=== PATIENT | male | born 1975 | race Two or more races ===

== ENCOUNTER 2017-10-06 10:27 | Inpatient (IN) | payer OTHER ==
[2017-10-06 11:24] VITALS: BMI 31.4
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
[2017-10-06] MEDS ORDERED: MAGNESIUM HYDROX 2400MG/30ML ORAL SUSPENSION 30 ML CUP PO PRN (16:05)
[2017-10-06] MEDS ORDERED: LOPERAMIDE HCL 2 MG CAPSULE PO PRN (16:05)
[2017-10-06] MEDS ORDERED: MENTHOL/PHENOL 1 EACH UD MM PRN (16:05)
[2017-10-06] MEDS ORDERED: MAG HYDROX/AL HYDROX/SIMETH 30 ML UNIT-DOSE CUP PO PRN (16:05)
[2017-10-06] MEDS ORDERED: IBUPROFEN 400 MG TABLET (FP) PO PRN (16:05)
[2017-10-06] MEDS ORDERED: NICOTINE POLACRILEX 4 MG GUM BC PRN (16:05)
[2017-10-06] MEDS ORDERED: ACETAMINOPHEN 325 MG TABLET (FP) PO PRN (16:05)
[2017-10-06] MEDS ORDERED: guaiFENesin/D-METHORPHAN HB 10 ML UNIT-DOSE CUPS PO PRN (16:05)
[2017-10-06] MEDS ORDERED: MAGNESIUM CITRATE 300 ML BOTTLE PO PRN (16:05)
[2017-10-06] MEDS ORDERED: P-EPHED 60MG/TRIPROLIDI 2.5MG TABLET PO PRN (16:05)
[2017-10-06] MEDS ORDERED: METHADONE HCL 10 MG TABLET (FOR DETOX USE ONLY) PO ONE ×2 (17:00→23:00)
[2017-10-06] MEDS ORDERED: diazePAM 5 MG TABLET PO ONE (17:00)
[2017-10-06] MEDS: NICOTINE 21 MG/24 HOURS TOPICAL PATCH TD SCH (17:16)
[2017-10-06 20:16] LABS: URINE APPEARANCE CLEAR; URINE BILIRUBIN NEGATIVE (<2.0 mg/dL); URINE COLOR LTYELLOW; URINE GLUCOSE (UA) NEGATIVE (NEGATIVE); URINE KETONE NEGATIVE (NEGATIVE); URINE LEUK ESTERASE NEGATIVE (NEGATIVE); URINE NITRITE NEGATIVE (NEGATIVE); URINE PROTEIN NEGATIVE (NEGATIVE); URINE UROBILINOGEN NEGATIVE mg/dL (0.2-1.0)
[2017-10-06] MEDS ORDERED: MELATONIN 5 MG TABLETS PO PRN (22:00)
[2017-10-06] MEDS: THIAMINE HCL 100 MG TABLET (FP) PO SCH (22:34)
[2017-10-06] MEDS: diazePAM 5 MG TABLET PO SCH (22:34)
[2017-10-07] MEDS: diazePAM 5 MG TABLET PO SCH ×3 (06:49→23:10)
[2017-10-07] MEDS ORDERED: METHADONE HCL 10 MG TABLET (FOR DETOX USE ONLY) PO SCH (10:00)
[2017-10-07] MEDS: NICOTINE 21 MG/24 HOURS TOPICAL PATCH TD SCH (10:30)
[2017-10-07] MEDS: PRENATAL VITAMINS W/ FOLIC ACID TABLET (FP) PO SCH (10:30)
[2017-10-07] MEDS: diazePAM 5 MG TABLET PO PRN (10:30)
[2017-10-07 11:04] LABS: HEMATOCRIT 40.4 % (35.4-49); HEMOGLOBIN 13.5 GM/dL (11.7-16.9); MCH 30.6 pg (25.7-33.7); MCHC 33.4 g/dl (32.0-35.9); MEAN CELL VOLUME 91.7 fl (80-96); MEAN PLT VOLUME 9.8 fl (7.5-11.1); PLATELET COUNT 174 K/MM3 (134-434); RDW 12.5 % (11.9-15.9); WHITE BLOOD COUNT 6.3 K/mm3 (4.0-10.0)
--- NOTE | 2017-10-07 11:10 | PN ---
S CIWA - CIWA Score Nausea/Vomitin Muscle Tremors: 3 Anxiety: 3 Agitation: 3 Paroxysmal Sweats: 2 Orientation: 0-Oriented Tacttile Disturbances: 1-Very Mild Itch/Numbness Auditory Disturbances: 1-Very Mild Visual Disturbances: 0-None Headache: 2-Mild CIWA-Ar Total Score: 18 BHS COWS - Scale Resting Pulse: 0= [place] 80 or Below Sweatin= Chills/Flushing Restless Observation: 3= Extraneous Movement Pupil Size: 1= Pupils >than Normal Bone or Joint Aches: 2= Severe Diffuse Aches Runny Nose/ Eye Tearin= Runny Nose/Eyes GI Upset > 30mins: 2= Nausea/Diarrhea Tremor Observation of Outstretched Hands: 2= Slight Tremor Visible Yawning Observation: 1= 1-2x During Session Anxiety or Irritability: 2=Irritable/Anxious Goose Flesh Skin: 0=Smooth Skin COWS Score: 16 S Progress Note (SOAP) Subjective: alert,irritable,anxious,interrupted sleep,tremor,pain in the body and back Objective: 10/07/17 11:07 Vital Signs Temperature 97.0 F L 10/07/17 09:52 Pulse Rate 52 L 10/07/17 09:52 Respiratory Rate 18 10/07/17 09:52 Blood Pressure 100/53 10/07/17 09:52 O2 Sat by Pulse Oximetry (%) ekg sinus bradycardia,inverted t in 1,avl rate 44/min no chest pain,no sob,no dizziness Laboratory Last Values Urine Color Ltyellow 10/06/17 19:00 Urine Appearance Clear 10/06/17 19:00 Urine pH 5.0 (5.0-8.0) 10/06/17 19:00 Ur Specific [place] 1.019 (1.001-1.035) 10/06/17 19:00 Urine Protein Negative (NEGATIVE) 10/06/17 19:00 Urine Glucose (UA) Negative (NEGATIVE) 10/06/17 19:00 Urine Ketones Negative (NEGATIVE) 10/06/17 19:00 Urine Blood Negative (NEGATIVE) 10/06/17 19:00 Urine Nitrite Negative (NEGATIVE) 10/06/17 19:00 Urine Bilirubin Negative (<2.0 mg/dL) 10/06/17 19:00 Urine Urobilinogen Negative mg/dL (0.2-1.0) 10/06/17 19:00 Ur Leukocyte Esterase Negative (NEGATIVE) 10/06/17 19:00 labs pending Assessment: 10/07/17 11:09 withdrawal symptom Plan: continue detox
[2017-10-07] MEDS ORDERED: CYCLOBENZAPRINE HCL 10 MG TABLET (FP) PO PRN (11:11)
[2017-10-07 11:32] LABS: ALBUMIN 3.6 g/dl (3.4-5.0); ANION GAP 8 MMOL/L (8-16); BLOOD UREA NITROGEN 10 mg/dL (7-18); CALCIUM 8.9 mg/dL (8.5-10.1); CHLORIDE 107 mmol/L (98-107); CO2 29 mmol/L (21-32); GLUCOSE,RANDOM 87 mg/dL (74-106); POTASSIUM 4.1 mmol/L (3.5-5.1); SODIUM 144 mmol/L (136-145)
[2017-10-07 11:36] LABS: ALK PHOS 78 U/L (45-117); BILIRUBIN,TOTAL 0.3 mg/dL (0.2-1.0); CREATININE 0.8 mg/dL (0.7-1.3); SGOT/AST 23 U/L (15-37); SGPT/ALT 29 U/L (12-78); TOT PROT 6.8 g/dl (6.4-8.2)
[2017-10-07 11:55] LABS: SICKLE CELL SCREEN NEGATIVE (NEGATIVE)
--- NOTE | 2017-10-07 20:17 | EKG ---
Test Reason : Blood Pressure : / mmHG Vent. Rate : 044 BPM Atrial Rate : 044 BPM P-R Int : 150 ms QRS Dur : 086 ms QT Int : 444 ms P-R-T Axes : 000 125 138 degrees QTc Int : 379 ms MARKED SINUS BRADYCARDIA WITH SINUS ARRHYTHMIA LEFT POSTERIOR FASCICULAR BLOCK ST ELEVATION, CONSIDER EARLY REPOLARIZATION, PERICARDITIS, OR INJURY NONSPECIFIC ST ABNORMALITY ABNORMAL ECG NO PREVIOUS ECGS AVAILABLE Confirmed by JIMMY TRIPLETT, SAGRARIO ([id number]) on 10/07/2017 8:17:25 PM Referred By: Confirmed By:SAGRARIO MARQUEZ MD
[2017-10-07] MEDS: cloNIDine HCL 0.1 MG TABLET PO SCH (23:09)
[2017-10-07] MEDS: THIAMINE HCL 100 MG TABLET (FP) PO SCH (23:09)
[2017-10-08] MEDS: diazePAM 5 MG TABLET PO PRN (05:25)
--- NOTE | 2017-10-08 10:28 | PN ---
[facility] CIWA - CIWA Score Nausea/Vomitin Muscle Tremors: 3 Anxiety: 3 Agitation: 2 Paroxysmal Sweats: 1-Minimal Palms Moist Orientation: 0-Oriented Tacttile Disturbances: 1-Very Mild Itch/Numbness Auditory Disturbances: 1-Very Mild Visual Disturbances: 0-None Headache: 2-Mild CIWA-Ar Total Score: 16 BHS COWS - Scale Resting Pulse: 0= [place] 80 or Below Sweatin= Chills/Flushing Restless Observation: 3= Extraneous Movement Pupil Size: 1= Pupils >than Normal Bone or Joint Aches: 2= Severe Diffuse Aches Runny Nose/ Eye Tearin= Runny Nose/Eyes GI Upset > 30mins: 2= Nausea/Diarrhea Tremor Observation of Outstretched Hands: 2= Slight Tremor Visible Yawning Observation: 1= 1-2x During Session Anxiety or Irritability: 2=Irritable/Anxious Goose Flesh Skin: 0=Smooth Skin COWS Score: 16 [facility] Progress Note (SOAP) Subjective: alert,irritable,anxious,interrupted sleep,tremor,pain in the body and back Objective: 10/08/17 10:25 Vital Signs Temperature 98.4 F 10/08/17 09:26 Pulse Rate 51 L 10/08/17 09:26 Respiratory Rate 18 10/08/17 09:26 Blood Pressure 140/77 10/08/17 09:26 O2 Sat by Pulse Oximetry (%) Laboratory Last Values WBC 6.3 K/mm3 (4.0-10.0) 10/07/17 07:00 RBC 4.40 M/mm3 (4.00-5.60) 10/07/17 07:00 Hgb 13.5 GM/dL (11.7-16.9) 10/07/17 07:00 Hct 40.4 % (35.4-49) 10/07/17 07:00 MCV 91.7 fl (80-96) 10/07/17 07:00 MCH 30.6 pg (25.7-33.7) 10/07/17 07:00 MCHC 33.4 g/dl (32.0-35.9) 10/07/17 07:00 RDW 12.5 % (11.9-15.9) 10/07/17 07:00 Plt Count 174 K/MM3 (134-434) 10/07/17 07:00 MPV 9.8 fl (7.5-11.1) 10/07/17 07:00 Sickle Cell Screen Negative (NEGATIVE) 10/07/17 07:00 Sodium 144 mmol/L (136-145) 10/07/17 07:00 Potassium 4.1 mmol/L (3.5-5.1) 10/07/17 07:00 Chloride 107 mmol/L (98-107) 10/07/17 07:00 Carbon Dioxide 29 mmol/L (21-32) 10/07/17 07:00 Anion Gap 8 MMOL/L (8-16) 10/07/17 07:00 BUN 10 mg/dL (7-18) 10/07/17 07:00 Creatinine 0.8 mg/dL (0.7-1.3) 10/07/17 07:00 Creat Clearance w eGFR > 60 (>60) 10/07/17 07:00 Random Glucose 87 mg/dL (74-106) 10/07/17 07:00 Calcium 8.9 mg/dL (8.5-10.1) 10/07/17 07:00 Total Bilirubin 0.3 mg/dL (0.2-1.0) 10/07/17 07:00 AST 23 U/L (15-37) 10/07/17 07:00 ALT 29 U/L (12-78) 10/07/17 07:00 Alkaline Phosphatase 78 U/L (45-117) 10/07/17 07:00 Total Protein 6.8 g/dl (6.4-8.2) 10/07/17 07:00 Albumin 3.6 g/dl (3.4-5.0) 10/07/17 07:00 Urine Color Ltyellow 10/06/17 19:00 Urine Appearance Clear 10/06/17 19:00 Urine pH 5.0 (5.0-8.0) 10/06/17 19:00 Ur Specific [place] 1.019 (1.001-1.035) 10/06/17 19:00 Urine Protein Negative (NEGATIVE) 10/06/17 19:00 Urine Glucose (UA) Negative (NEGATIVE) 10/06/17 19:00 Urine Ketones Negative (NEGATIVE) 10/06/17 19:00 Urine Blood Negative (NEGATIVE) 10/06/17 19:00 Urine Nitrite Negative (NEGATIVE) 10/06/17 19:00 Urine Bilirubin Negative (<2.0 mg/dL) 10/06/17 19:00 Urine Urobilinogen Negative mg/dL (0.2-1.0) 10/06/17 19:00 Ur Leukocyte Esterase Negative (NEGATIVE) 10/06/17 19:00 RPR Titer Nonreactive (NONREACTIVE) 10/07/17 07:00 HIV 1&2 Antibody Screen Negative 10/06/17 07:00 HIV P24 Antigen Negative 10/06/17 07:00 Assessment: 10/08/17 10:27 withdrawal symptom Plan: continue detox
[2017-10-08] MEDS: PRENATAL VITAMINS W/ FOLIC ACID TABLET (FP) PO SCH (11:09)
[2017-10-08] MEDS: cloNIDine HCL 0.1 MG TABLET PO SCH ×2 (11:09→22:26)
[2017-10-08] MEDS: NICOTINE 21 MG/24 HOURS TOPICAL PATCH TD SCH (11:10)
[2017-10-08] MEDS: diazePAM 5 MG TABLET PO SCH ×2 (11:10→22:26)
[2017-10-08] MEDS: METHADONE HCL 5 MG TABLET (FOR DETOX USE ONLY) PO SCH (11:10)
[2017-10-08] MEDS: THIAMINE HCL 100 MG TABLET (FP) PO SCH (22:26)
[2017-10-09] MEDS: diazePAM 5 MG TABLET PO PRN (06:20)
[2017-10-09] MEDS: diazePAM 5 MG TABLET PO SCH ×2 (11:01→22:17)
[2017-10-09] MEDS: PRENATAL VITAMINS W/ FOLIC ACID TABLET (FP) PO SCH (11:01)
[2017-10-09] MEDS: METHADONE HCL 5 MG TABLET (FOR DETOX USE ONLY) PO SCH (11:02)
[2017-10-09] MEDS: cloNIDine HCL 0.1 MG TABLET PO SCH ×2 (11:02→22:18)
[2017-10-09] MEDS: NICOTINE 21 MG/24 HOURS TOPICAL PATCH TD SCH (11:02)
--- NOTE | 2017-10-09 11:02 | PN ---
BHS Progress Note (SOAP) Subjective: alert,irritable,anxious,interrupted sleep,tremor pain in the body Objective: 10/09/17 11:01 Vital Signs Temperature 98.4 F 10/09/17 10:11 Pulse Rate 51 L 10/09/17 10:11 Respiratory Rate 18 10/09/17 10:11 Blood Pressure 101/61 10/09/17 10:11 O2 Sat by Pulse Oximetry (%) Assessment: 10/09/17 11:01 withdrawal symptom Plan: continue detox
[2017-10-09] MEDS: THIAMINE HCL 100 MG TABLET (FP) PO SCH (22:17)
[2017-10-10] MEDS ORDERED: diazePAM 5 MG TABLET PO SCH (10:00)
[2017-10-10] MEDS ORDERED: METHADONE HCL 10 MG TABLET (FOR DETOX USE ONLY) PO SCH (10:00)
[2017-10-10] MEDS: cloNIDine HCL 0.1 MG TABLET PO SCH ×2 (11:13→23:16)
[2017-10-10] MEDS: PRENATAL VITAMINS W/ FOLIC ACID TABLET (FP) PO SCH (11:14)
[2017-10-10] MEDS: NICOTINE 21 MG/24 HOURS TOPICAL PATCH TD SCH (11:21)
--- NOTE | 2017-10-10 14:55 | PN ---
S Progress Note (SOAP) Subjective: Interrupted sleep, tremors, generalized aches and irritability Objective: 10/10/17 14:54 Vital Signs 10/10/17 10/10/17 09:21 14:46 Temperature 98.1 F 97.2 F L Pulse Rate 51 L 45 L Respiratory 18 16 Rate Blood Pressure 101/55 86/50 Laboratory Last Values WBC 6.3 K/mm3 (4.0-10.0) 10/07/17 07:00 RBC 4.40 M/mm3 (4.00-5.60) 10/07/17 07:00 Hgb 13.5 GM/dL (11.7-16.9) 10/07/17 07:00 Hct 40.4 % (35.4-49) 10/07/17 07:00 MCV 91.7 fl (80-96) 10/07/17 07:00 MCH 30.6 pg (25.7-33.7) 10/07/17 07:00 MCHC 33.4 g/dl (32.0-35.9) 10/07/17 07:00 RDW 12.5 % (11.9-15.9) 10/07/17 07:00 Plt Count 174 K/MM3 (134-434) 10/07/17 07:00 MPV 9.8 fl (7.5-11.1) 10/07/17 07:00 Sickle Cell Screen Negative (NEGATIVE) 10/07/17 07:00 Sodium 144 mmol/L (136-145) 10/07/17 07:00 Potassium 4.1 mmol/L (3.5-5.1) 10/07/17 07:00 Chloride 107 mmol/L (98-107) 10/07/17 07:00 Carbon Dioxide 29 mmol/L (21-32) 10/07/17 07:00 Anion Gap 8 MMOL/L (8-16) 10/07/17 07:00 BUN 10 mg/dL (7-18) 10/07/17 07:00 Creatinine 0.8 mg/dL (0.7-1.3) 10/07/17 07:00 Creat Clearance w eGFR > 60 (>60) 10/07/17 07:00 Random Glucose 87 mg/dL (74-106) 10/07/17 07:00 Calcium 8.9 mg/dL (8.5-10.1) 10/07/17 07:00 Total Bilirubin 0.3 mg/dL (0.2-1.0) 10/07/17 07:00 AST 23 U/L (15-37) 10/07/17 07:00 ALT 29 U/L (12-78) 10/07/17 07:00 Alkaline Phosphatase 78 U/L (45-117) 10/07/17 07:00 Total Protein 6.8 g/dl (6.4-8.2) 10/07/17 07:00 Albumin 3.6 g/dl (3.4-5.0) 10/07/17 07:00 Urine Color Ltyellow 10/06/17 19:00 Urine Appearance Clear 10/06/17 19:00 Urine pH 5.0 (5.0-8.0) 10/06/17 19:00 Ur Specific [place] 1.019 (1.001-1.035) 10/06/17 19:00 Urine Protein Negative (NEGATIVE) 10/06/17 19:00 Urine Glucose (UA) Negative (NEGATIVE) 10/06/17 19:00 Urine Ketones Negative (NEGATIVE) 10/06/17 19:00 Urine Blood Negative (NEGATIVE) 10/06/17 19:00 Urine Nitrite Negative (NEGATIVE) 10/06/17 19:00 Urine Bilirubin Negative (<2.0 mg/dL) 10/06/17 19:00 Urine Urobilinogen Negative mg/dL (0.2-1.0) 10/06/17 19:00 Ur Leukocyte Esterase Negative (NEGATIVE) 10/06/17 19:00 RPR Titer Nonreactive (NONREACTIVE) 10/07/17 07:00 HIV 1&2 Antibody Screen Negative 10/06/17 07:00 HIV P24 Antigen Negative 10/06/17 07:00 Labs noted Assessment: 10/10/17 14:55 Withdrawal sx Plan: Continue detox
[2017-10-10] MEDS: THIAMINE HCL 100 MG TABLET (FP) PO SCH (23:16)
[2017-10-11] MEDS ORDERED: METHADONE HCL 5 MG TABLET (FOR DETOX USE ONLY) PO SCH (06:00)
[2017-10-11 11:15] VITALS: BP 99/55; PULSE 57; TEMP 97.7
--- NOTE | 2017-10-11 13:22 | DS ---
[facility] Detox Discharge Summary Admission Date: 10/06/17 Discharge Date: 10/11/17 - History Present History: Alcohol Dependence, Cannabis Dependence, Cocaine Dependence, Opioid Dependence, Sedative Dependence Pertinent Past History: Poly substance use disorder. Denies other significant PMH. - Physical Exam Results Vital Signs: Vital Signs Temperature 97.7 F 10/11/17 10:00 Pulse Rate 57 L 10/11/17 10:00 Respiratory Rate 18 10/11/17 10:00 Blood Pressure 99/55 10/11/17 10:00 O2 Sat by Pulse Oximetry (%) Pertinent Admission Physical Exam Findings: Withdrawal symptoms. Laboratory Tests 10/06/17 10/06/17 10/07/17 07:00 19:00 07:00 WBC 6.3 RBC 4.40 Hgb 13.5 Hct 40.4 MCV 91.7 MCH 30.6 MCHC 33.4 RDW 12.5 Plt Count 174 MPV 9.8 Sickle Cell Screen Negative Sodium Potassium Chloride Carbon Dioxide Anion Gap BUN Creatinine Creat Clearance w eGFR Random Glucose Calcium Total Bilirubin AST ALT Alkaline Phosphatase Total Protein Albumin Urine Color Ltyellow Urine Appearance Clear Urine pH 5.0 Ur Specific [place] 1.019 Urine Protein Negative Urine Glucose (UA) Negative Urine Ketones Negative Urine Blood Negative Urine Nitrite Negative Urine Bilirubin Negative Urine Urobilinogen Negative Ur Leukocyte Esterase Negative RPR Titer HIV 1&2 Antibody Screen Negative HIV P24 Antigen Negative 10/07/17 10/07/17 07:00 07:00 WBC RBC Hgb Hct MCV MCH MCHC RDW Plt Count MPV Sickle Cell Screen Sodium 144 Potassium 4.1 Chloride 107 Carbon Dioxide 29 Anion Gap 8 BUN 10 Creatinine 0.8 Creat Clearance w eGFR > 60 Random Glucose 87 Calcium 8.9 Total Bilirubin 0.3 AST 23 ALT 29 Alkaline Phosphatase 78 Total Protein 6.8 Albumin 3.6 Urine Color Urine Appearance Urine pH Ur Specific [place] Urine Protein Urine Glucose (UA) Urine Ketones Urine Blood Urine Nitrite Urine Bilirubin Urine Urobilinogen Ur Leukocyte Esterase RPR Titer Nonreactive HIV 1&2 Antibody Screen HIV P24 Antigen Labs reviewed. - Treatment Hospital Course: Detox Protocol Followed, Detoxed Safely, Responded well, Discharged Condition Good - Medication Discharge Medications: Ambulatory Orders NK [No Known Home Medication] 10/06/17 - Diagnosis (1) Alcohol dependence with uncomplicated withdrawal Status: Acute (2) Cannabis dependence, uncomplicated Status: Acute (3) Cocaine dependence, uncomplicated Status: Acute (4) Nicotine dependence Status: Acute Qualifiers: Nicotine product type: cigarettes Substance use status: in withdrawal Qualified Code(s): F17.213 - Nicotine dependence, cigarettes, with withdrawal (5) Opioid dependence with withdrawal Status: Acute (6) Sedative, hypnotic or anxiolytic dependence with withdrawal, uncomplicated Status: Acute - AMA Did Patient Leave Against Medical Advice: No
== END 2017-10-11 09:39 | disposition home or self-care (01) | DRG 773 ==
LOC: YASAS 10:27 → Y6N 16:09
PROVIDERS: ADMIT Surgery; ATTEND Surgery
PROC: HZ2ZZZZ Detoxification Services for Substance Abuse Treatment (ICD-10-PCS; principal; 2017-10-06)
DX: F11.23 Opioid dependence with withdrawal (principal); F13.230 Sedative, hypnotic or anxiolytic dependence with withdrawal, uncomplicated; F10.230 Alcohol dependence with withdrawal, uncomplicated; F14.20 Cocaine dependence, uncomplicated; F12.20 Cannabis dependence, uncomplicated; F17.213 Nicotine dependence, cigarettes, with withdrawal
CPT/HCPCS: 36415; 80053; 81003; 85027; 85660; 86593; 87389; 93005; 93010; J0735

== ENCOUNTER 2019-09-02 10:41 | Inpatient (IN) | payer OTHER ==
--- NOTE | 2019-09-02 11:49 | BHS.RME ---
Substance Use & Tx History - Substance Use History Heroin Substance amount: 1 gram Frequency of use: Daily Substance route: Inhalation (ex: sniffing or snorting) Date of Last Use: 09/01/19 Cocaine- Powder Substance amount: 1/2 gram Frequency of use: Daily Substance route: Inhalation (ex: sniffing or snorting) Date of Last Use: 08/31/19 Physical/Psych/Mental Status - Behavior General Behavior: Increased activity (restlessness, agitation) Eye Contact: Normal - Cooperativeness Cooperativeness: Cooperative - Thinking Thought Processes: Tight, Logical, Goal Directed - Physical Health Problems Is patient presently having any pain?: No Does patient presently have any injuries (include location): No Does patient currently have a fever: No Is patient : No COWS - Scale Resting Pulse: 0= HI 80 or Below Sweatin= Chills/Flushing Restless Observation: 1= Difficult to Sit Still Pupil Size: 1= Pupils >than Normal Bone or Joint Aches: 2= Severe Diffuse Aches Runny Nose/ Eye Tearin= Nasal Congestion GI Upset > 30mins: 2= Nausea/Diarrhea Tremor Observation: 2= Slight Tremor Visible Yawning Observation: 1= 1-2x During Session Anxiety or Irritability: 1=Feels Anxious/Irritable Goose Flesh Skin: 0=Smooth Skin COWS Score: 12
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
[2019-09-02] MEDS ORDERED: BISMUTH SUBSALICYLATE 524 MG/30 ML UD PO PRN (13:12)
[2019-09-02] MEDS ORDERED: MENTHOL/PHENOL 1 EACH UD MM PRN (13:12)
[2019-09-02] MEDS ORDERED: METHOCARBAMOL 500 MG TABLET PO PRN (13:12)
[2019-09-02] MEDS ORDERED: ACETAMINOPHEN 325 MG TABLET (FP) PO PRN ×2 (13:12)
[2019-09-02] MEDS ORDERED: IBUPROFEN 400 MG TABLET (FP) PO PRN (13:12)
[2019-09-02] MEDS ORDERED: MAG HYDROX/AL HYDROX/SIMETH 30 ML UNIT-DOSE CUP PO PRN (13:12)
[2019-09-02] MEDS ORDERED: NICOTINE POLACRILEX 2 MG GUM BUC PRN (13:12)
[2019-09-02] MEDS ORDERED: cloNIDine HCL 0.1 MG TABLET PO PRN (13:12)
[2019-09-02] MEDS ORDERED: MAGNESIUM CITRATE 300 ML BOTTLE PO PRN (13:12)
[2019-09-02] MEDS ORDERED: MAGNESIUM HYDROX 2400MG/30ML ORAL SUSPENSION 30 ML CUP PO PRN (13:12)
[2019-09-02] MEDS ORDERED: METHADONE HCL 10 MG TABLET (FOR DETOX USE ONLY) PO ONE (13:30)
[2019-09-02] MEDS ORDERED: ONDANSETRON *ODT* 4 MG TABLET SL ONE (13:30)
[2019-09-02 13:48] VITALS: BMI 34.4
[2019-09-02] MEDS: hydrOXYzine PAMOATE 25 MG CAPSULE (FP) PO SCH ×3 (14:49→22:37)
[2019-09-02] MEDS: PRENATAL VITAMINS W/ FOLIC ACID TABLET (FP) PO SCH (14:50)
[2019-09-02] MEDS: NICOTINE 7 MG/24 HOURS TOPICAL PATCH TD SCH (14:57)
[2019-09-02 17:27] LABS: HEMATOCRIT 36.7 % (35.4-49); HEMOGLOBIN 12.3 GM/dL (11.7-16.9); MCH 31.3 pg (25.7-33.7); MCHC 33.6 g/dl (32.0-35.9); MEAN CELL VOLUME 93.3 fl (80-96); PLATELET COUNT 183 K/MM3 (134-434); RBC 3.93 M/mm3 (4.00-5.60); WHITE BLOOD COUNT 8.3 K/mm3 (4.0-10.0)
[2019-09-02 17:41] LABS: ALBUMIN 3.5 g/dl (3.4-5.0); BILIRUBIN,TOTAL 0.2 mg/dL (0.2-1); BLOOD UREA NITROGEN 11.4 mg/dL (7-18); CALCIUM 8.8 mg/dL (8.5-10.1); CREATININE 0.9 mg/dL (0.55-1.3); POTASSIUM 3.7 mmol/L (3.5-5.1); TOT PROT 6.8 g/dl (6.4-8.2)
[2019-09-02] MEDS: MELATONIN 5 MG TABLETS PO SCH (22:37)
[2019-09-02] MEDS: THIAMINE HCL 100 MG TABLET (FP) PO SCH (22:37)
[2019-09-03] MEDS: hydrOXYzine PAMOATE 25 MG CAPSULE (FP) PO SCH ×5 (05:27→22:27)
[2019-09-03] MEDS ORDERED: METHADONE HCL 5 MG TABLET (FOR DETOX USE ONLY) ONE (08:48)
[2019-09-03] MEDS ORDERED: METHADONE HCL 10 MG TABLET (FOR DETOX USE ONLY) ONE (08:49)
[2019-09-03] MEDS ORDERED: METHADONE (DETOX) 20 MG, METHADONE (DETOX) 5 MG PO ONE (10:00)
[2019-09-03] MEDS: PRENATAL VITAMINS W/ FOLIC ACID TABLET (FP) PO SCH (10:16)
[2019-09-03] MEDS: NICOTINE 7 MG/24 HOURS TOPICAL PATCH TD SCH (10:16)
--- NOTE | 2019-09-03 12:10 | PN ---
[facility] CIWA - CIWA Score Nausea/Vomitin-No Nausea/No Vomiting Muscle Tremors: None Anxiety: 0-No Anxiety, at Ease Agitation: 0-Normal Activity Paroxysmal Sweats: No Perspiration Orientation: 0-Oriented Tacttile Disturbances: 0-None Auditory Disturbances: 0-None Visual Disturbances: 0-None Headache: 0-None Present CIWA-Ar Total Score: 0 S COWS - Scale Resting Pulse: 0= [place] 80 or Below Sweatin= Chills/Flushing Restless Observation: 1= Difficult to Sit Still Pupil Size: 0= Normal to Room Light Bone or Joint Aches: 2= Severe Diffuse Aches Runny Nose/ Eye Tearin= None GI Upset > 30mins: 0= None Tremor Observation of Outstretched Hands: 2= Slight Tremor Visible Yawning Observation: 0= None Anxiety or Irritability: 2=Irritable/Anxious Goose Flesh Skin: 0=Smooth Skin COWS Score: 8 [facility] Progress Note (SOAP) Subjective: Complaints of sweats, irritability, anxiety and shakes. Objective: 09/03/19 12:09 Vital Signs 09/03/19 09/03/19 05:09 08:48 Temperature 97.7 F 97.3 F L Pulse Rate 52 L 50 L Respiratory 20 18 Rate Blood Pressure 124/72 126/74 O2 Sat by Pulse 100 98 Oximetry (%) Laboratory Last Values WBC 8.3 K/mm3 (4.0-10.0) 09/02/19 13:00 RBC 3.93 M/mm3 (4.00-5.60) L 09/02/19 13:00 Hgb 12.3 GM/dL (11.7-16.9) 09/02/19 13:00 Hct 36.7 % (35.4-49) 09/02/19 13:00 MCV 93.3 fl (80-96) 09/02/19 13:00 MCH 31.3 pg (25.7-33.7) 09/02/19 13:00 MCHC 33.6 g/dl (32.0-35.9) 09/02/19 13:00 RDW 13.0 % (11.9-15.9) 09/02/19 13:00 Plt Count 183 K/MM3 (134-434) 09/02/19 13:00 MPV 10.0 fl (7.5-11.1) 09/02/19 13:00 Sodium 142 mmol/L (136-145) 09/02/19 13:00 Potassium 3.7 mmol/L (3.5-5.1) 09/02/19 13:00 Chloride 108 mmol/L (98-107) H 09/02/19 13:00 Carbon Dioxide 27 mmol/L (21-32) 09/02/19 13:00 Anion Gap 8 MMOL/L (8-16) 09/02/19 13:00 BUN 11.4 mg/dL (7-18) 09/02/19 13:00 Creatinine 0.9 mg/dL (0.55-1.3) 09/02/19 13:00 Est GFR (CKD-EPI)AfAm 122.52 09/02/19 13:00 Est GFR (CKD-EPI)NonAf 105.71 09/02/19 13:00 Random Glucose 89 mg/dL (74-106) 09/02/19 13:00 Calcium 8.8 mg/dL (8.5-10.1) 09/02/19 13:00 Total Bilirubin 0.2 mg/dL (0.2-1) 09/02/19 13:00 AST 19 U/L (15-37) 09/02/19 13:00 ALT 21 U/L (13-61) 09/02/19 13:00 Alkaline Phosphatase 85 U/L (45-117) 09/02/19 13:00 Total Protein 6.8 g/dl (6.4-8.2) 09/02/19 13:00 Albumin 3.5 g/dl (3.4-5.0) 09/02/19 13:00 Syphilis Serology Non-reactive (NONREACTIVE) 09/02/19 13:00 Labs noted. Assessment: 09/03/19 12:09 Alert and oriented x 3, in no acute respiratory distress. Full ROM, ambulating in the unit without assistance. Withdrawal symptoms. Plan: Continue detox protocol.
[2019-09-03] MEDS: THIAMINE HCL 100 MG TABLET (FP) PO SCH (22:27)
[2019-09-03] MEDS: MELATONIN 5 MG TABLETS PO SCH (22:27)
[2019-09-04] MEDS: hydrOXYzine PAMOATE 25 MG CAPSULE (FP) PO SCH ×5 (05:52→22:11)
[2019-09-04] MEDS ORDERED: METHADONE HCL 10 MG TABLET (FOR DETOX USE ONLY) PO ONE (10:00)
[2019-09-04] MEDS: PRENATAL VITAMINS W/ FOLIC ACID TABLET (FP) PO SCH (10:53)
[2019-09-04] MEDS: NICOTINE 7 MG/24 HOURS TOPICAL PATCH TD SCH (10:54)
--- NOTE | 2019-09-04 12:33 | PN ---
[facility] COWS - Scale Resting Pulse: 0= [place] 80 or Below Sweatin= Chills/Flushing Restless Observation: 0= Sits Still Pupil Size: 0= Normal to Room Light Bone or Joint Aches: 2= Severe Diffuse Aches Runny Nose/ Eye Tearin= Runny Nose/Eyes GI Upset > 30mins: 1= Stomach Cramp Tremor Observation of Outstretched Hands: 2= Slight Tremor Visible Yawning Observation: 0= None Anxiety or Irritability: 2=Irritable/Anxious Goose Flesh Skin: 0=Smooth Skin COWS Score: 10 [facility] Progress Note (SOAP) Subjective: Stomachache, diarrhea, interrupted sleep Objective: 09/04/19 12:30 Last Vital Signs Temp Pulse Resp BP Pulse Ox 98.4 F 63 17 133/73 100 09/04/19 08:50 09/04/19 08:50 09/04/19 08:50 09/04/19 08:50 09/04/19 08:50 Laboratory Tests 09/02/19 09/02/19 09/02/19 13:00 13:00 13:00 WBC 8.3 RBC 3.93 L Hgb 12.3 Hct 36.7 MCV 93.3 MCH 31.3 MCHC 33.6 RDW 13.0 Plt Count 183 MPV 10.0 Sodium 142 Potassium 3.7 Chloride 108 H Carbon Dioxide 27 Anion Gap 8 BUN 11.4 Creatinine 0.9 Est GFR (CKD-EPI)AfAm 122.52 Est GFR (CKD-EPI)NonAf 105.71 Random Glucose 89 Calcium 8.8 Total Bilirubin 0.2 AST 19 ALT 21 Alkaline Phosphatase 85 Total Protein 6.8 Albumin 3.5 Syphilis Serology Non-reactive COVID-19 (DAYO) 09/02/19 14:00 WBC RBC Hgb Hct MCV MCH MCHC RDW Plt Count MPV Sodium Potassium Chloride Carbon Dioxide Anion Gap BUN Creatinine Est GFR (CKD-EPI)AfAm Est GFR (CKD-EPI)NonAf Random Glucose Calcium Total Bilirubin AST ALT Alkaline Phosphatase Total Protein Albumin Syphilis Serology COVID-19 (DAYO) Not detected Labs reviewed Assessment: 09/04/19 12:31 Withdrawal sxs Elevated b/p noted Plan: Continue detox Encouraged PO water hydration Elevated b/p: denies htn, could be r/t withdrawal, monitor b/p
[2019-09-04] MEDS: THIAMINE HCL 100 MG TABLET (FP) PO SCH (22:10)
[2019-09-04] MEDS: MELATONIN 5 MG TABLETS PO SCH (22:11)
[2019-09-05] MEDS: hydrOXYzine PAMOATE 25 MG CAPSULE (FP) PO SCH ×5 (05:09→22:05)
[2019-09-05] MEDS ORDERED: METHADONE HCL 5 MG TABLET (FOR DETOX USE ONLY) ONE (09:33)
[2019-09-05] MEDS ORDERED: METHADONE HCL 10 MG TABLET (FOR DETOX USE ONLY) ONE (09:33)
[2019-09-05] MEDS ORDERED: METHADONE (DETOX) 10 MG, METHADONE (DETOX) 5 MG PO ONE (10:00)
[2019-09-05] MEDS: NICOTINE 7 MG/24 HOURS TOPICAL PATCH TD SCH (11:00)
[2019-09-05] MEDS: PRENATAL VITAMINS W/ FOLIC ACID TABLET (FP) PO SCH (11:00)
--- NOTE | 2019-09-05 12:18 | PN ---
S COWS - Scale Resting Pulse: 0= [place] 80 or Below Sweatin= No chills or Flushing Restless Observation: 1= Difficult to Sit Still Pupil Size: 0= Normal to Room Light Bone or Joint Aches: 1= Mild Discomfort Runny Nose/ Eye Tearin= Runny Nose/Eyes GI Upset > 30mins: 2= Nausea/Diarrhea Tremor Observation of Outstretched Hands: 2= Slight Tremor Visible Yawning Observation: 1= 1-2x During Session Anxiety or Irritability: 2=Irritable/Anxious Goose Flesh Skin: 0=Smooth Skin COWS Score: 11 [facility] Progress Note (SOAP) Subjective: alert,irritable,anxious,interrupted sleep,pain in the body and back Objective: 09/05/19 12:21 Vital Signs Temperature 97.1 F L 09/05/19 08:57 Pulse Rate 62 09/05/19 08:57 Respiratory Rate 20 09/05/19 08:57 Blood Pressure 109/61 09/05/19 08:57 O2 Sat by Pulse Oximetry (%) 99 09/05/19 08:57 09/05/19 12:22 withdrawal symptom 09/05/19 12:22 Laboratory Last Values WBC 8.3 K/mm3 (4.0-10.0) 09/02/19 13:00 RBC 3.93 M/mm3 (4.00-5.60) L 09/02/19 13:00 Hgb 12.3 GM/dL (11.7-16.9) 09/02/19 13:00 Hct 36.7 % (35.4-49) 09/02/19 13:00 MCV 93.3 fl (80-96) 09/02/19 13:00 MCH 31.3 pg (25.7-33.7) 09/02/19 13:00 MCHC 33.6 g/dl (32.0-35.9) 09/02/19 13:00 RDW 13.0 % (11.9-15.9) 09/02/19 13:00 Plt Count 183 K/MM3 (134-434) 09/02/19 13:00 MPV 10.0 fl (7.5-11.1) 09/02/19 13:00 Sodium 142 mmol/L (136-145) 09/02/19 13:00 Potassium 3.7 mmol/L (3.5-5.1) 09/02/19 13:00 Chloride 108 mmol/L (98-107) H 09/02/19 13:00 Carbon Dioxide 27 mmol/L (21-32) 09/02/19 13:00 Anion Gap 8 MMOL/L (8-16) 09/02/19 13:00 BUN 11.4 mg/dL (7-18) 09/02/19 13:00 Creatinine 0.9 mg/dL (0.55-1.3) 09/02/19 13:00 Est GFR (CKD-EPI)AfAm 122.52 09/02/19 13:00 Est GFR (CKD-EPI)NonAf 105.71 09/02/19 13:00 Random Glucose 89 mg/dL (74-106) 09/02/19 13:00 Calcium 8.8 mg/dL (8.5-10.1) 09/02/19 13:00 Total Bilirubin 0.2 mg/dL (0.2-1) 09/02/19 13:00 AST 19 U/L (15-37) 09/02/19 13:00 ALT 21 U/L (13-61) 09/02/19 13:00 Alkaline Phosphatase 85 U/L (45-117) 09/02/19 13:00 Total Protein 6.8 g/dl (6.4-8.2) 09/02/19 13:00 Albumin 3.5 g/dl (3.4-5.0) 09/02/19 13:00 Syphilis Serology Non-reactive (NONREACTIVE) 09/02/19 13:00 COVID-19 (DAYO) Not detected (Not Detected) 09/02/19 14:00 Assessment: 09/05/19 12:22 withdrawal symptom Plan: continue detox methadone regimen
[2019-09-05] MEDS: THIAMINE HCL 100 MG TABLET (FP) PO SCH (22:05)
[2019-09-05] MEDS: MELATONIN 5 MG TABLETS PO SCH (22:06)
[2019-09-06] MEDS: hydrOXYzine PAMOATE 25 MG CAPSULE (FP) PO SCH (06:30)
[2019-09-06] MEDS ORDERED: hydrOXYzine PAMOATE 25 MG CAPSULE (FP) PO PRN (08:39)
[2019-09-06] MEDS ORDERED: METHADONE HCL 10 MG TABLET (FOR DETOX USE ONLY) PO ONE (10:00)
[2019-09-06] MEDS: NICOTINE 7 MG/24 HOURS TOPICAL PATCH TD SCH (10:24)
[2019-09-06] MEDS: PRENATAL VITAMINS W/ FOLIC ACID TABLET (FP) PO SCH (10:24)
--- NOTE | 2019-09-06 12:45 | PN ---
[facility] COWS - Scale Resting Pulse: 0= [place] 80 or Below Sweatin= No chills or Flushing Restless Observation: 0= Sits Still Pupil Size: 0= Normal to Room Light Bone or Joint Aches: 1= Mild Discomfort Runny Nose/ Eye Tearin= Nasal Congestion GI Upset > 30mins: 1= Stomach Cramp Tremor Observation of Outstretched Hands: 1= Tremor [place], Not Seen Yawning Observation: 1= 1-2x During Session Anxiety or Irritability: 2=Irritable/Anxious Goose Flesh Skin: 0=Smooth Skin COWS Score: 7 S Progress Note (SOAP) Subjective: alert,interrupted sleep Objective: 09/06/19 12:54 Vital Signs Temperature 97.7 F 09/06/19 08:55 Pulse Rate 71 09/06/19 08:55 Respiratory Rate 19 09/06/19 08:55 Blood Pressure 128/68 09/06/19 08:55 O2 Sat by Pulse Oximetry (%) 96 09/06/19 08:55 withdrawal symptom history of varicose vein no calf tenderness Assessment: 09/06/19 12:57 withdrawal symptom Plan: continue detox,kwaku badage right leg,discharge in am,follow up with after care program as arrangement and medical provider
[2019-09-06] MEDS: MELATONIN 5 MG TABLETS PO SCH (22:19)
[2019-09-06] MEDS: THIAMINE HCL 100 MG TABLET (FP) PO SCH (22:19)
[2019-09-07] MEDS ORDERED: METHADONE HCL 5 MG TABLET (FOR DETOX USE ONLY) PO ONE (06:00)
[2019-09-07 09:08] VITALS: BP 113/66; TEMP 97.3
[2019-09-07 09:13] VITALS: PULSE 74
--- NOTE | 2019-09-07 09:21 | PN ---
[facility] COWS - Scale Resting Pulse: 0= [place] 80 or Below Sweatin= No chills or Flushing Restless Observation: 0= Sits Still Pupil Size: 0= Normal to Room Light Bone or Joint Aches: 0= None Runny Nose/ Eye Tearin= None GI Upset > 30mins: 0= None Tremor Observation of Outstretched Hands: 0= None Yawning Observation: 0= None Anxiety or Irritability: 1=Feels Anxious/Irritable Goose Flesh Skin: 0=Smooth Skin COWS Score: 1 [facility] Progress Note (SOAP) Subjective: alert,no complaint Objective: 09/07/19 09:20 Vital Signs Temperature 97.3 F L 09/07/19 08:46 Pulse Rate 74 09/07/19 08:46 Respiratory Rate 20 09/07/19 08:46 Blood Pressure 113/66 09/07/19 08:46 O2 Sat by Pulse Oximetry (%) 98 09/07/19 05:29 Assessment: 09/07/19 09:20 detox completed,no withdrawal symptom Plan: stable for discharge today,follow up with after care program as arrangement
--- NOTE | 2019-09-07 09:22 | DS ---
[facility] Detox Discharge Summary Admission Date: 09/02/19 Discharge Date: 09/07/19 - History Present History: Cocaine Dependence, Opioid Dependence Additional Comments: alert,oriented x 3 ambulation on the unit lung clear to auscultation bilaterally abdomen soft,no distension,no pain no calf tenderness detox completed,no withdrawal symptom stale for discharge follow up with after care program out patient as arranged by counselor lat the unit in stable condition total time of discharge 35 minutes Pertinent Past History: nicotine dependence varicose vein - Physical Exam Results Vital Signs: Vital Signs Temperature 97.3 F L 09/07/19 08:46 Pulse Rate 74 09/07/19 08:46 Respiratory Rate 09/07/19 08:46 Blood Pressure 113/66 09/07/19 08:46 O2 Sat by Pulse Oximetry (%) 98 09/07/19 05:29 Pertinent Admission Physical Exam Findings: withdrawal signs and symptom Vital Signs Temperature 97.3 F L 09/07/19 08:46 Pulse Rate 74 09/07/19 08:46 Respiratory Rate 09/07/19 08:46 Blood Pressure 113/66 09/07/19 08:46 O2 Sat by Pulse Oximetry (%) 98 09/07/19 05:29 Laboratory Last Values WBC 8.3 K/mm3 (4.0-10.0) 09/02/19 13:00 RBC 3.93 M/mm3 (4.00-5.60) L 09/02/19 13:00 Hgb 12.3 GM/dL (11.7-16.9) 09/02/19 13:00 Hct 36.7 % (35.4-49) 09/02/19 13:00 MCV 93.3 fl (80-96) 09/02/19 13:00 MCH 31.3 pg (25.7-33.7) 09/02/19 13:00 MCHC 33.6 g/dl (32.0-35.9) 09/02/19 13:00 RDW 13.0 % (11.9-15.9) 09/02/19 13:00 Plt Count 183 K/MM3 (134-434) 09/02/19 13:00 MPV 10.0 fl (7.5-11.1) 09/02/19 13:00 Sodium 142 mmol/L (136-145) 09/02/19 13:00 Potassium 3.7 mmol/L (3.5-5.1) 09/02/19 13:00 Chloride 108 mmol/L (98-107) H 09/02/19 13:00 Carbon Dioxide 27 mmol/L (21-32) 09/02/19 13:00 Anion Gap 8 MMOL/L (8-16) 09/02/19 13:00 BUN 11.4 mg/dL (7-18) 09/02/19 13:00 Creatinine 0.9 mg/dL (0.55-1.3) 09/02/19 13:00 Est GFR (CKD-EPI)AfAm 122.52 09/02/19 13:00 Est GFR (CKD-EPI)NonAf 105.71 09/02/19 13:00 Random Glucose 89 mg/dL (74-106) 09/02/19 13:00 Calcium 8.8 mg/dL (8.5-10.1) 09/02/19 13:00 Total Bilirubin 0.2 mg/dL (0.2-1) 09/02/19 13:00 AST 19 U/L (15-37) 09/02/19 13:00 ALT 21 U/L (13-61) 09/02/19 13:00 Alkaline Phosphatase 85 U/L (45-117) 09/02/19 13:00 Total Protein 6.8 g/dl (6.4-8.2) 09/02/19 13:00 Albumin 3.5 g/dl (3.4-5.0) 09/02/19 13:00 Syphilis Serology Non-reactive (NONREACTIVE) 09/02/19 13:00 COVID-19 (DAYO) Not detected (Not Detected) 09/02/19 14:00 - Treatment Hospital Course: Detox Protocol Followed, Detoxed Safely, Responded well, Discharged Condition Good Patient has Accepted a Rehab Referral to: declined - Medication Discharge Medications: Ambulatory Orders NK [No Known Home Medication] 10/06/17 - Diagnosis (1) Opioid dependence with withdrawal Current Visit: Yes Status: Acute (2) Cocaine dependence, uncomplicated Current Visit: Yes Status: Acute (3) Nicotine dependence Current Visit: Yes Status: Acute Qualifiers: Nicotine product type: cigarettes Substance use status: in withdrawal Qualified Code(s): F17.213 - Nicotine dependence, cigarettes, with withdrawal (4) Varicose vein of leg Current Visit: Yes Status: Acute - AMA Did Patient Leave Against Medical Advice: No
== END 2019-09-07 09:45 | disposition home or self-care (01) | DRG 773 ==
LOC: YASAS 10:41 → Y6N 13:04
PROVIDERS: ADMIT Allergy & Immunology; ATTEND Allergy & Immunology
PROC: HZ2ZZZZ Detoxification Services for Substance Abuse Treatment (ICD-10-PCS; principal; 2019-09-02)
DX: F11.23 Opioid dependence with withdrawal (principal); F14.20 Cocaine dependence, uncomplicated; F17.210 Nicotine dependence, cigarettes, uncomplicated; I83.90 Asymptomatic varicose veins of unspecified lower extremity; R03.0 Elevated blood-pressure reading, without diagnosis of hypertension; Z87.828 Personal history of other (healed) physical injury and trauma
CPT/HCPCS: 36415; 80053; 85027; 86780; J0735; Q0162; U0003